=== PATIENT | male | born 1970 | race Caucasian/White ===

== ENCOUNTER 2020-12-29 12:12 | Inpatient (IN) | payer OTHER ==
[~2020-12-29] VITALS: Ht 180 cm; Wt 81.9 kg
[~2020-12-29 12:12] MED LIST: NAPROXEN500 M1 PO
[2020-12-29 12:25] VITALS: BP 123/72
[2020-12-29 13:30] LABS: HEMATOCRIT 44.2 % (42.0-52.0); MEAN CELL VOLUME 88.6 fl (80.0-94.0); MEAN CORPUSCULAR HGB 29.7 pg (27.0-31.0); MEAN CORPUSCULAR HGB CONC 33.5 g/dl (33.0-37.0); MEAN PLATELET VOLUME 9.3 fl (9.6-12.3); PLATELET COUNT AUTOMATED 410 10*3/uL (130-400); RED BLOOD COUNT 4.99 10*6/uL (4.50-5.90); RED CELL DISTRI WIDTH 13.4 % (0-14.5); WHITE BLOOD COUNT 9.5 10*3/uL (4.8-10.8)
[2020-12-29 13:33] VITALS: BP 111/69
[2020-12-29 13:35] LABS: ALBUMIN 2.1 gm/dl (3.1-4.5); ALKALINE PHOSPHATASE 72 U/L (45-117); BUN 14 mg/dl (7-24); CHLORIDE 103 mmol/L (98-107); CREATININE 0.87 mg/dL (0.70-1.30); LIPASE 199 U/L (73-393); POTASSIUM 3.7 mmol/L (3.5-5.1); SGOT/AST 54 IU/L (3-35); SGPT/ALT 70 U/L (12-78); SODIUM 137 mmol/L (136-145); TOTAL PROTEIN 6.6 gm/dL (6.4-8.2)
[2020-12-29 13:38] LABS: ACT PARTIAL THROMBO TIME 23.7 SECONDS (20.0-32.1); TROPONIN I < 0.015 ng/ml (<0.045)
[2020-12-29 13:45] LABS: BASOPHILS 1 % (0-1); PLATELET SUFFICIENCY HIGH (NORMAL); TOTAL CELLS COUNTED 100 #CELLS
[2020-12-29 16:00] VITALS: BP 119/63
[2020-12-29 18:12] VITALS: BP 99/69
[2020-12-29 20:00] VITALS: BP 119/63
[2020-12-29 23:15] VITALS: BP 114/75
[2020-12-30] VITALS: BP 103/66
[2020-12-30 00:08] LABS: ABG BASE EXCESS 3.8 mmol/L (-2.0-2.0); ARTERIAL BLOOD GAS PH 7.44 (7.35-7.45); ARTERIAL BLOOD GAS PO2 148.4 (80-90)
[2020-12-30 06:07] LABS: BUN 17 mg/dl (7-24); CHLORIDE 105 mmol/L (98-107); CREATININE 0.82 mg/dL (0.70-1.30); POTASSIUM 4.3 mmol/L (3.5-5.1); SODIUM 139 mmol/L (136-145)
[2020-12-30 06:55] LABS: HEMATOCRIT 44.2 % (42.0-52.0); MEAN CELL VOLUME 89.5 fl (80.0-94.0); MEAN CORPUSCULAR HGB 29.4 pg (27.0-31.0); MEAN CORPUSCULAR HGB CONC 32.8 g/dl (33.0-37.0); MEAN PLATELET VOLUME 9.7 fl (9.6-12.3); PLATELET COUNT AUTOMATED 433 10*3/uL (130-400); RED BLOOD COUNT 4.94 10*6/uL (4.50-5.90); RED CELL DISTRI WIDTH 13.6 % (0-14.5); WHITE BLOOD COUNT 7.9 10*3/uL (4.8-10.8)
[2020-12-30 07:36] LABS: ATYPICAL LYMPHS 1 % (0-0); PLATELET SUFFICIENCY HIGH (NORMAL); TOTAL CELLS COUNTED 100 #CELLS
[2020-12-30 08:00] VITALS: BP 91/46
[2020-12-30 12:00] VITALS: BP 116/74
[2020-12-30 16:00] VITALS: BP 115/87
[2020-12-30 20:00] VITALS: BP 121/75
[2020-12-31] VITALS: BP 135/70
[2020-12-31 06:21] LABS: BASO % 0.1 % (0.0-1.0); HEMATOCRIT 44.7 % (42.0-52.0); LYMPH % 6.7 % (27.0-41.0); MEAN CELL VOLUME 90.5 fl (80.0-94.0); MEAN CORPUSCULAR HGB 29.6 pg (27.0-31.0); MEAN CORPUSCULAR HGB CONC 32.7 g/dl (33.0-37.0); MEAN PLATELET VOLUME 9.9 fl (9.6-12.3); MONO # 0.8 10*3/uL (0.1-1.0); MONO % 5.8 % (3.0-9.0); NEUT # 12.3 10*3/uL (2.3-7.9); NEUT % 86.6 % (47.0-73.0); PLATELET COUNT AUTOMATED 532 10*3/uL (130-400); RED BLOOD COUNT 4.94 10*6/uL (4.50-5.90); RED CELL DISTRI WIDTH 14.1 % (0-14.5); WHITE BLOOD COUNT 14.2 10*3/uL (4.8-10.8)
[2020-12-31 06:43] LABS: BUN 22 mg/dl (7-24); CHLORIDE 107 mmol/L (98-107); CREATININE 0.84 mg/dL (0.70-1.30); SGOT/AST 50 IU/L (3-35); SGPT/ALT 106 U/L (12-78); SODIUM 142 mmol/L (136-145)
[2020-12-31 06:45] LABS: ALKALINE PHOSPHATASE 86 U/L (45-117); LDH 400 U/L (87-241); TOTAL PROTEIN 6.6 gm/dL (6.4-8.2)
[2020-12-31 06:52] LABS: POTASSIUM 5.4 mmol/L (3.5-5.1)
[2020-12-31 08:00] VITALS: BP 103/64
[2020-12-31 12:00] VITALS: BP 115/82; BP 118/67
[2020-12-31 16:00] VITALS: BP 123/73
[2020-12-31 18:00] VITALS: BP 123/73
[2021-01-01] VITALS: BP 127/72
[2021-01-01 07:08] LABS: BASO % 0.3 % (0.0-1.0); EOS % 0.1 % (1.0-4.0); HEMATOCRIT 45.9 % (42.0-52.0); LYMPH # 0.7 10*3/uL (1.3-4.4); LYMPH % 5.7 % (27.0-41.0); MEAN CELL VOLUME 91.8 fl (80.0-94.0); MEAN CORPUSCULAR HGB 29.6 pg (27.0-31.0); MEAN CORPUSCULAR HGB CONC 32.2 g/dl (33.0-37.0); MEAN PLATELET VOLUME 10.1 fl (9.6-12.3); MONO # 1.2 10*3/uL (0.1-1.0); NEUT # 10.5 10*3/uL (2.3-7.9); NEUT % 82.6 % (47.0-73.0); PLATELET COUNT AUTOMATED 575 10*3/uL (130-400); RED CELL DISTRI WIDTH 14.3 % (0-14.5); WHITE BLOOD COUNT 12.8 10*3/uL (4.8-10.8)
[2021-01-01 07:14] LABS: ALBUMIN 1.9 gm/dl (3.1-4.5); ALKALINE PHOSPHATASE 87 U/L (45-117); BUN 21 mg/dl (7-24); CHLORIDE 111 mmol/L (98-107); CREATININE 0.87 mg/dL (0.70-1.30); LDH 388 U/L (87-241); POTASSIUM 4.7 mmol/L (3.5-5.1); SGOT/AST 32 IU/L (3-35); SGPT/ALT 88 U/L (12-78); SODIUM 142 mmol/L (136-145); TOTAL PROTEIN 6.3 gm/dL (6.4-8.2)
[2021-01-01 08:00] VITALS: BP 126/74
[2021-01-01 12:00] VITALS: BP 120/67
[2021-01-01 16:00] VITALS: BP 105/70
[2021-01-01 20:00] VITALS: BP 116/67
[2021-01-02] VITALS: BP 102/48
[2021-01-02 06:20] LABS: HEMATOCRIT 44.8 % (42.0-52.0); MEAN CELL VOLUME 91.6 fl (80.0-94.0); MEAN CORPUSCULAR HGB 29.4 pg (27.0-31.0); MEAN CORPUSCULAR HGB CONC 32.1 g/dl (33.0-37.0); MEAN PLATELET VOLUME 9.5 fl (9.6-12.3); PLATELET COUNT AUTOMATED 592 10*3/uL (130-400); RED BLOOD COUNT 4.89 10*6/uL (4.50-5.90); RED CELL DISTRI WIDTH 14.4 % (0-14.5); WHITE BLOOD COUNT 10.7 10*3/uL (4.8-10.8)
[2021-01-02 06:26] LABS: ALBUMIN 1.9 gm/dl (3.1-4.5); ALKALINE PHOSPHATASE 84 U/L (45-117); BUN 18 mg/dl (7-24); CHLORIDE 108 mmol/L (98-107); CREATININE 0.87 mg/dL (0.70-1.30); LDH 414 U/L (87-241); POTASSIUM 4.5 mmol/L (3.5-5.1); SGOT/AST 35 IU/L (3-35); SGPT/ALT 78 U/L (12-78); SODIUM 141 mmol/L (136-145); TOTAL PROTEIN 6.2 gm/dL (6.4-8.2)
[2021-01-02 08:00] VITALS: BP 106/67
[2021-01-02 08:00] LABS: ATYPICAL LYMPHS 2 % (0-0); PLATELET SUFFICIENCY HIGH (NORMAL); TOTAL CELLS COUNTED 100 #CELLS
[2021-01-02 12:00] VITALS: BP 101/63
[2021-01-02 20:00] VITALS: BP 102/68
[2021-01-03] VITALS: BP 112/75
[2021-01-03 06:38] LABS: ALBUMIN 1.8 gm/dl (3.1-4.5); ALKALINE PHOSPHATASE 76 U/L (45-117); BUN 19 mg/dl (7-24); CHLORIDE 107 mmol/L (98-107); CREATININE 0.81 mg/dL (0.70-1.30); POTASSIUM 4.4 mmol/L (3.5-5.1); SGOT/AST 27 IU/L (3-35); SGPT/ALT 74 U/L (12-78); SODIUM 141 mmol/L (136-145)
[2021-01-03 08:00] VITALS: BP 96/65
[2021-01-03 12:00] VITALS: BP 110/76
[2021-01-03 16:00] VITALS: BP 109/77
[2021-01-03 20:00] VITALS: BP 119/73
[2021-01-04] VITALS: BP 95/66
[2021-01-04 06:59] LABS: BASO # 0.1 10*3/uL (0.0-0.1); BASO % 0.4 % (0.0-1.0); EOS # 0.1 10*3/uL (0.0-0.4); EOS % 0.7 % (1.0-4.0); HEMATOCRIT 47.8 % (42.0-52.0); LYMPH # 1.4 10*3/uL (1.3-4.4); LYMPH % 11.3 % (27.0-41.0); MEAN CELL VOLUME 91.7 fl (80.0-94.0); MEAN CORPUSCULAR HGB 29.2 pg (27.0-31.0); MEAN CORPUSCULAR HGB CONC 31.8 g/dl (33.0-37.0); MEAN PLATELET VOLUME 9.8 fl (9.6-12.3); MONO % 8.2 % (3.0-9.0); NEUT # 9.2 10*3/uL (2.3-7.9); PLATELET COUNT AUTOMATED 671 10*3/uL (130-400); RED BLOOD COUNT 5.21 10*6/uL (4.50-5.90); RED CELL DISTRI WIDTH 14.1 % (0-14.5)
[2021-01-04 07:19] LABS: ALBUMIN 1.9 gm/dl (3.1-4.5); BUN 19 mg/dl (7-24); CHLORIDE 106 mmol/L (98-107); CREATININE 0.86 mg/dL (0.70-1.30); LDH 268 U/L (87-241); POTASSIUM 4.8 mmol/L (3.5-5.1); SGOT/AST 30 IU/L (3-35); SGPT/ALT 81 U/L (12-78); SODIUM 139 mmol/L (136-145); TOTAL PROTEIN 6.3 gm/dL (6.4-8.2)
[2021-01-04 07:21] LABS: ALKALINE PHOSPHATASE 78 U/L (45-117)
[2021-01-04 08:00] VITALS: BP 101/64
[2021-01-04 12:00] VITALS: BP 120/64
[2021-01-04 16:00] VITALS: BP 120/59
[2021-01-04 20:00] VITALS: BP 107/68
[2021-01-05] VITALS: BP 99/59
[2021-01-05 07:02] LABS: ALBUMIN 2.1 gm/dl (3.1-4.5); ALKALINE PHOSPHATASE 89 U/L (45-117); BUN 20 mg/dl (7-24); CHLORIDE 105 mmol/L (98-107); POTASSIUM 4.1 mmol/L (3.5-5.1); SGOT/AST 33 IU/L (3-35); SGPT/ALT 85 U/L (12-78); SODIUM 140 mmol/L (136-145); TOTAL PROTEIN 6.5 gm/dL (6.4-8.2)
[2021-01-05 08:00] VITALS: BP 106/62
[2021-01-05 12:00] VITALS: BP 94/59
[2021-01-05 20:00] VITALS: BP 114/72
[2021-01-05] MEDS ORDERED: DECADRON6 M1 PO (23:53)
[2021-01-06] VITALS: BP 92/55
[2021-01-06 06:55] LABS: HEMATOCRIT 47.4 % (42.0-52.0); MEAN CELL VOLUME 91.7 fl (80.0-94.0); MEAN CORPUSCULAR HGB 29.6 pg (27.0-31.0); MEAN CORPUSCULAR HGB CONC 32.3 g/dl (33.0-37.0); MEAN PLATELET VOLUME 9.5 fl (9.6-12.3); PLATELET COUNT AUTOMATED 634 10*3/uL (130-400); RED BLOOD COUNT 5.17 10*6/uL (4.50-5.90); RED CELL DISTRI WIDTH 14.1 % (0-14.5); WHITE BLOOD COUNT 14.9 10*3/uL (4.8-10.8)
[2021-01-06 07:27] LABS: CHLORIDE 106 mmol/L (98-107); POTASSIUM 4.1 mmol/L (3.5-5.1); SODIUM 141 mmol/L (136-145)
[2021-01-06 07:37] LABS: ALBUMIN 2.1 gm/dl (3.1-4.5); ALKALINE PHOSPHATASE 79 U/L (45-117); BUN 20 mg/dl (7-24); CREATININE 0.84 mg/dL (0.70-1.30); SGOT/AST 54 IU/L (3-35); SGPT/ALT 116 U/L (12-78); TOTAL PROTEIN 6.1 gm/dL (6.4-8.2)
[2021-01-06 08:00] VITALS: BP 100/50
[2021-01-06 08:08] LABS: PLATELET SUFFICIENCY HIGH (NORMAL); TOTAL CELLS COUNTED 100 #CELLS
[2021-01-06 12:00] VITALS: BP 93/50
[2021-01-06 16:00] VITALS: BP 109/50
[2021-01-06 20:00] VITALS: BP 100/73
[2021-01-07] VITALS: BP 106/79
[2021-01-07 07:05] LABS: HEMATOCRIT 48.9 % (42.0-52.0); MEAN CORPUSCULAR HGB 29.5 pg (27.0-31.0); MEAN CORPUSCULAR HGB CONC 31.7 g/dl (33.0-37.0); MEAN PLATELET VOLUME 9.8 fl (9.6-12.3); PLATELET COUNT AUTOMATED 634 10*3/uL (130-400); RED BLOOD COUNT 5.26 10*6/uL (4.50-5.90); RED CELL DISTRI WIDTH 14.2 % (0-14.5); WHITE BLOOD COUNT 15.3 10*3/uL (4.8-10.8)
[2021-01-07 07:25] LABS: ALBUMIN 2.3 gm/dl (3.1-4.5); BUN 20 mg/dl (7-24); CHLORIDE 105 mmol/L (98-107); POTASSIUM 3.9 mmol/L (3.5-5.1); SGOT/AST 78 IU/L (3-35); SODIUM 139 mmol/L (136-145)
[2021-01-07 07:27] LABS: ALKALINE PHOSPHATASE 77 U/L (45-117); CREATININE 0.95 mg/dL (0.70-1.30); SGPT/ALT 167 U/L (12-78); TOTAL PROTEIN 6.3 gm/dL (6.4-8.2)
[2021-01-07 07:53] LABS: BURR CELLS FEW; PLATELET SUFFICIENCY HIGH (NORMAL); TOTAL CELLS COUNTED 100 #CELLS
[2021-01-07 08:00] VITALS: BP 103/66
[2021-01-07 12:00] VITALS: BP 93/54
[2021-01-07 16:00] VITALS: BP 108/66
[2021-01-07 20:00] VITALS: BP 103/65
[2021-01-08] VITALS: BP 94/69
[2021-01-08 06:59] LABS: HEMATOCRIT 46.1 % (42.0-52.0); MEAN CORPUSCULAR HGB 29.3 pg (27.0-31.0); MEAN CORPUSCULAR HGB CONC 31.9 g/dl (33.0-37.0); MEAN PLATELET VOLUME 9.6 fl (9.6-12.3); PLATELET COUNT AUTOMATED 577 10*3/uL (130-400); RED BLOOD COUNT 5.01 10*6/uL (4.50-5.90); RED CELL DISTRI WIDTH 14.3 % (0-14.5); WHITE BLOOD COUNT 15.4 10*3/uL (4.8-10.8)
[2021-01-08 07:34] LABS: ALBUMIN 2.1 gm/dl (3.1-4.5); CHLORIDE 106 mmol/L (98-107); POTASSIUM 4.1 mmol/L (3.5-5.1); SODIUM 141 mmol/L (136-145)
[2021-01-08 07:43] LABS: ALKALINE PHOSPHATASE 77 U/L (45-117); BUN 20 mg/dl (7-24); SGOT/AST 88 IU/L (3-35); SGPT/ALT 237 U/L (12-78); TOTAL PROTEIN 5.9 gm/dL (6.4-8.2)
[2021-01-08 08:00] VITALS: BP 98/62; BP 99/49
[2021-01-08 08:47] LABS: PLATELET SUFFICIENCY HIGH (NORMAL); TOTAL CELLS COUNTED 100 #CELLS
[2021-01-08 12:00] VITALS: BP 112/80
[2021-01-08 16:00] VITALS: BP 120/62
[2021-01-08 20:00] VITALS: BP 120/58
[2021-01-09] VITALS: BP 92/56
[2021-01-09 04:00] VITALS: BP 99/62
[2021-01-09 06:18] LABS: HEMATOCRIT 43.1 % (42.0-52.0); MEAN CELL VOLUME 92.9 fl (80.0-94.0); MEAN CORPUSCULAR HGB CONC 32.3 g/dl (33.0-37.0); MEAN PLATELET VOLUME 9.4 fl (9.6-12.3); PLATELET COUNT AUTOMATED 493 10*3/uL (130-400); RED BLOOD COUNT 4.64 10*6/uL (4.50-5.90); RED CELL DISTRI WIDTH 14.4 % (0-14.5); WHITE BLOOD COUNT 15.3 10*3/uL (4.8-10.8)
[2021-01-09 06:27] LABS: ALKALINE PHOSPHATASE 75 U/L (45-117); BUN 22 mg/dl (7-24); CHLORIDE 108 mmol/L (98-107); CREATININE 1.03 mg/dL (0.70-1.30); LDH 212 U/L (87-241); POTASSIUM 4.3 mmol/L (3.5-5.1); SGOT/AST 72 IU/L (3-35); SGPT/ALT 252 U/L (12-78); SODIUM 141 mmol/L (136-145); TOTAL PROTEIN 5.7 gm/dL (6.4-8.2)
[2021-01-09 07:45] LABS: ATYPICAL LYMPHS 1 % (0-0); BASOPHILS 1 % (0-1); OVALOCYTES FEW; PLASMA CELL 1 % (0-0); TOTAL CELLS COUNTED 100 #CELLS
[2021-01-09 07:46] LABS: BURR CELLS FEW; PLATELET SUFFICIENCY HIGH (NORMAL)
[2021-01-09 08:00] VITALS: BP 90/54
[2021-01-09 12:00] VITALS: BP 100/56
== END 2021-01-09 17:12 | disposition home or self-care (01) | DRG 177 ==
LOC: ED 12:12 → EDHOLD 15:49 → 4E 15:49
PROVIDERS: Emergency Medicine; Hospitalist; Internal Medicine Critical Care Medicine; Podiatrist; ADMIT Internal Medicine; ATTEND Internal Medicine
PROC: 5A09357 Assistance with Respiratory Ventilation, Less than 24 Consecutive Hours, Continuous Positive Airway Pressure (ICD-10-PCS; 2020-12-29)
PROC: XW033E5 Introduction of Remdesivir Anti-infective into Peripheral Vein, Percutaneous Approach, New Technology Group 5 (ICD-10-PCS; principal; 2020-12-30)
PROC: 5A0935A Assistance with Respiratory Ventilation, Less than 24 Consecutive Hours, High Flow/Velocity Cannula (ICD-10-PCS; 2020-12-30)
PROC: 5A09457 Assistance with Respiratory Ventilation, 24-96 Consecutive Hours, Continuous Positive Airway Pressure (ICD-10-PCS; 2020-12-30)
PROC: 5A09357 Assistance with Respiratory Ventilation, Less than 24 Consecutive Hours, Continuous Positive Airway Pressure (ICD-10-PCS; 2021-01-02)
PROC: 5A09357 Assistance with Respiratory Ventilation, Less than 24 Consecutive Hours, Continuous Positive Airway Pressure (ICD-10-PCS; 2021-01-05)
PROC: 5A09357 Assistance with Respiratory Ventilation, Less than 24 Consecutive Hours, Continuous Positive Airway Pressure (ICD-10-PCS; 2021-01-06)
PROC: 5A09357 Assistance with Respiratory Ventilation, Less than 24 Consecutive Hours, Continuous Positive Airway Pressure (ICD-10-PCS; 2021-01-07)
PROC: 5A0935A Assistance with Respiratory Ventilation, Less than 24 Consecutive Hours, High Flow/Velocity Cannula (ICD-10-PCS; 2021-01-08)
PROC: 5A0935A Assistance with Respiratory Ventilation, Less than 24 Consecutive Hours, High Flow/Velocity Cannula (ICD-10-PCS; 2021-01-09)
DX: U07.1 COVID-19 (principal); J96.01 Acute respiratory failure with hypoxia; J12.82 Pneumonia due to coronavirus disease 2019; E43 Unspecified severe protein-calorie malnutrition; J84.89 Other specified interstitial pulmonary diseases; E87.5 Hyperkalemia; Z88.5 Allergy status to narcotic agent; R74.01 Elevation of levels of liver transaminase levels; Z68.27 Body mass index [BMI] 27.0-27.9, adult